=== PATIENT | female | born 1945 | race Caucasian/White ===

== ENCOUNTER 2016-09-06 02:48 | Observation (INO) | payer MEDICARE ==
[2016-09-06] VITALS (15 sets, daily range): BP systolic 138–190; BP diastolic 68–86; PULSE 56–71; RESP 18–20; TEMP 96.9–98; O2SAT 95–98
[~2016-09-06] VITALS: Ht 165.1 cm; Wt 108.8 kg
[~2016-09-06 02:48] MED LIST: APRE1TAB3; ASPI1TAB69 PO; METF500T PO; VERA180T35 PO; VITA100052 PO
[2016-09-06] MEDS ORDERED: SODIUM CHLORIDE 0.9% FLUSH 5 ML FLUSH IVF PRN (03:00)
[2016-09-06 03:07] LABS: AUTOMATED NEUTROPHIL # 8.1 TH/MM3 (1.8-7.7); BASOPHIL # 0.3 TH/MM3 (0-0.2); BASOPHIL % 2.7 % (0.0-2.0); EOSINOPHIL # 0.4 TH/MM3 (0-0.4); HEMATOCRIT 39.2 % (35.0-46.0); LYMPH % 23.3 % (9.0-44.0); LYMPHOCYTE # 2.8 TH/MM3 (1.0-4.8); MEAN CORPUSCULAR HEMOGLOBIN 28.1 PG (27.0-34.0); MEAN CORPUSCULAR HGB CONC 32.7 % (32.0-36.0); MONO % 4.4 % (0.0-8.0); NEUT % 66.6 % (16.0-70.0); PLATELET COUNT 399 TH/MM3 (150-450); RED BLOOD COUNT 4.55 MIL/MM3 (4.00-5.30); RED CELL DISTRIBUTION WIDTH 13.4 % (11.6-17.2); WHITE BLOOD COUNT 12.1 TH/MM3 (4.0-11.0)
[2016-09-06 03:10] LABS: HEMO FLAGS DIFF FINAL
--- NOTE | 2016-09-06 03:11 | PD ---
HPI Chief Complaint: Neuro Symptoms/ Deficits Time Seen by Provider: 03:13 Travel History International Travel<30 days: No Contact w/Intl Traveler<30days: No Traveled to known affect area: No History of Present Illness HPI The patient is a 71-year-old female who was gurgling in bed next to her janae. This woke her up and her nudged her but she did not respond. He then got up and noted that she was confused. The patient also with the bed which she never does. The patient after about 15 minutes was able to talk to her and became more coherent. She has never had any focal neurologic change. She comes in feeling generally weak but is alert and oriented and has no focal weakness. She denies any headache. Her blood sugars have been running between 90 and 110 at home. She has some metformin controlled diabetic. She denies any trauma. She denies any chest pain, cough, fever or shortness of breath. PFSH Past Medical History Arthritis: Yes Blood Disorders: No Anxiety: Yes Heart Rhythm Problems: Yes (MVP) Cancer: No Cardiovascular Problems: Yes (MVP) High Cholesterol: Yes Chest Pain: Yes Endocrine: No GERD: Yes Glaucoma: No Genitourinary: Yes (UTI'S) Hypertension: No Immune Disorder: No Integumentary: Yes (PSORIASIS) Migraines: Yes Past Surgical History AICD: No Appendectomy: Yes (TAKEN OUT WITH HYSTERECTOMY) Arteriovenous Shunt: No Gynecologic Surgery: Yes (HYSTERECTOMY) Hysterectomy: Yes Insulin Pump: No Pacemaker: No Social History Alcohol Use: No Tobacco Use: No Substance Use: No Allergies-Medications (Allergen,Severity, Reaction): Coded Allergies: No Known Allergies (Verified , 09/06/16) Reported Meds & Prescriptions Reported Meds & Active Scripts Active Reported Otezla (Apremilast) 30 Mg Tab Aspirin 81 Mg Tabdr 81 Mg PO DAILY Vitamin D High Potency (Cholecalciferol) 1,000 Unit Cap 1,000 Units PO DAILY Metformin (Metformin HCl) 500 Mg Tab 500 Mg PO DAILY With a meal Verapamil SR (Verapamil HCl) 180 Mg Tab 180 Mg PO DAILY Review of Systems Except as stated in HPI: all other systems reviewed are Neg Physical Exam Narrative GENERAL: The patient is alert and oriented 3. She appears in no acute distress. SKIN: Warm and dry. HEAD: Atraumatic. Normocephalic. Neither raccoon eyes or kohli sign is present. EYES: Pupils equal and round. No scleral icterus. No injection or drainage. ENT: No nasal bleeding or discharge. Mucous membranes pink and moist. There appear to be bite costello on both sides of the patient's tongue. These all appear recent. NECK: Trachea midline. No JVD. CARDIOVASCULAR: Regular rate and rhythm. No murmur appreciated. RESPIRATORY: No accessory muscle use. Clear to auscultation. Breath sounds equal bilaterally. GASTROINTESTINAL: Abdomen soft, non-tender, nondistended. Hepatic and splenic margins not palpable. MUSCULOSKELETAL: No obvious deformities. No clubbing. No cyanosis. No edema. NEUROLOGICAL: Awake and alert. No obvious cranial nerve deficits. Motor grossly within normal limits. Normal speech. PSYCHIATRIC: Appropriate mood and affect; insight and judgment normal. Data Data Last Documented VS Vital Signs Date Time Temp Pulse Resp B/P Pulse Ox O2 Delivery O2 Flow Rate FiO2 09/06/16 04:06 61 18 146/71 96 Room Air 09/06/16 03:07 98.0 Orders Electrocardiogram (09/06/16 02:56) Complete Blood Count With Diff (09/06/16 02:56) Comprehensive Metabolic Panel (09/06/16 02:56) Magnesium (Mg) (09/06/16 02:56) Ckmb (Isoenzyme) Profile (09/06/16 02:56) Troponin I (09/06/16 02:56) Urinalysis - C+S If Indicated (09/06/16 02:56) Ecg Monitoring (09/06/16 02:56) Iv Access Insert/Monitor (09/06/16 02:56) Oximetry (09/06/16 02:56) Sodium Chloride 0.9% Flush (Ns Flush) (09/06/16 03:00) Ct Brain W/O Iv Contrast(Rout) (09/06/16 02:58) Arterial Blood Gas (Abg) (09/06/16 03:14) Chest, Pa & Lat (09/06/16 03:14) CKMB (09/06/16 03:00) CKMB% (09/06/16 03:00) B-Type Natriuretic Peptide (09/06/16 04:17) Labs Laboratory Tests Test 09/06/16 09/06/16 03:00 03:23 White Blood Count 12.1 TH/MM3 Red Blood Count 4.55 MIL/MM3 Hemoglobin 12.8 GM/DL Hematocrit 39.2 % Mean Corpuscular Volume 86.0 FL Mean Corpuscular Hemoglobin 28.1 PG Mean Corpuscular Hemoglobin 32.7 % Concent Red Cell Distribution Width 13.4 % Platelet Count 399 TH/MM3 Mean Platelet Volume 8.3 FL Neutrophils (%) (Auto) 66.6 % Lymphocytes (%) (Auto) 23.3 % Monocytes (%) (Auto) 4.4 % Eosinophils (%) (Auto) 3.0 % Basophils (%) (Auto) 2.7 % Neutrophils # (Auto) 8.1 TH/MM3 Lymphocytes # (Auto) 2.8 TH/MM3 Monocytes # (Auto) 0.5 TH/MM3 Eosinophils # (Auto) 0.4 TH/MM3 Basophils # (Auto) 0.3 TH/MM3 CBC Comment DIFF FINAL Differential Comment Sodium Level 137 MEQ/L Potassium Level 3.9 MEQ/L Chloride Level 104 MEQ/L Carbon Dioxide Level 19.8 MEQ/L Anion Gap 13 MEQ/L Blood Urea Nitrogen 16 MG/DL Creatinine 1.10 MG/DL Estimat Glomerular Filtration 49 ML/MIN Rate Random Glucose 142 MG/DL Calcium Level 8.4 MG/DL Magnesium Level 2.0 MG/DL Total Bilirubin 0.2 MG/DL Aspartate Amino Transf 20 U/L (AST/SGOT) Alanine Aminotransferase 27 U/L (ALT/SGPT) Alkaline Phosphatase 103 U/L Total Creatine Kinase 119 U/L Creatine Kinase MB 1.5 NG/ML Troponin I LESS THAN 0.02 NG/ML Total Protein 7.1 GM/DL Albumin 3.5 GM/DL Blood Gas Puncture Site RT BRACHIAL Blood Gas Patient Temperature 98.6 Blood Gas HCO3 22 mmol/L Blood Gas Base Excess -2.0 mmol/L Blood Gas Oxygen Saturation 96 % Arterial Blood pH 7.37 Arterial Blood Partial 40 mmHG Pressure CO2 Arterial Blood Partial 93 mmHG Pressure O2 Arterial Blood Oxygen Content 16.6 Vol % Arterial Blood 1.3 % Carboxyhemoglobin Arterial Blood Methemoglobin 1.4 % Blood Gas Hemoglobin 12.2 G/DL Oxygen Delivery Device ROOM AIR Blood Gas Inspired Oxygen 21 % MDM Medical Decision Making Medical Screen Exam Complete: Yes Emergency Medical Condition: Yes Medical Record Reviewed: Yes Differential Diagnosis New-onset seizure, electrolyte disorder, hypo-/hyperglycemia, brain mass, renal insufficiency, sepsis, anemia, cardiac dysrhythmia, hypoxemia Narrative Course The patient appears to have a seizure. The gurgling, apparent postictal state, loss of bladder control, tongue bite costello all suggest a seizure. The cause of the seizure is unknown. It is possible that it could have been hypoxemia, the patient did have an episode where her oxygenation went to 93%. It is possible that her oxygenation was lower when she was asleep. The blood gases were drawn while she is awake. Hypoglycemia is apparently not the case, her blood sugar here is in the 140s. Moreover, she did not have any problem with her blood sugar at home recently. Also, the x-ray suggest congestive heart failure with mild cardiomegaly and increased pulmonary vascularity. This may be the reason she may have had some transient hypoxemia. The CT scan does not suggest any cause for seizures. If the patient does have congestive heart failure, this is a new onset condition for her. Physician Communication Physician Communication I discussed the patient with Dr. Delgado, the patient will be admitted to her for 23 hour observation. Diagnosis Primary Impression: Seizure Additional Impression: CHF (congestive heart failure) Admitting Information Admitting Physician Requests: Observation Roque Tejada MD Sep 06, 2016 03:11
[2016-09-06 03:16] LABS: CHLORIDE 104 MEQ/L (98-107); POTASSIUM 3.9 MEQ/L (3.5-5.1); SODIUM (NA) 137 MEQ/L (136-145)
[2016-09-06 03:21] LABS: ANION GAP 13 MEQ/L (5-15); BICARBONATE 19.8 MEQ/L (21.0-32.0); BLOOD UREA NITROGEN 16 MG/DL (7-18)
[2016-09-06 03:23] LABS: ALT (GPT) 27 U/L (10-53); AST (GOT) 20 U/L (15-37)
[2016-09-06 03:24] LABS: GLOMERULAR FILTRATION RATE 49 ML/MIN (>89)
[2016-09-06 03:25] LABS: TOTAL BILIRUBIN ADULT 0.2 MG/DL (0.2-1.0)
[2016-09-06 03:26] LABS: ALKALINE PHOSPHATASE 103 U/L (45-117); CREATINE KINASE 119 U/L (26-192)
[2016-09-06 03:32] LABS: BLOOD GAS CARBOXYHEMOGLOBIN 1.3 % (0-4); BLOOD GAS HCO3 22 mmol/L (22-26); BLOOD GAS METHEMOGLOBIN 1.4 % (0-2); BLOOD GAS O2 HGB SATURATION 96 % (90-100); BLOOD GAS OXYGEN CONTENT 16.6 Vol % (12.0-20.0); BLOOD GAS PCO2 40 mmHG (38-42); BLOOD GAS PO2 93 mmHG (61-120); BLOOD GAS TOTAL HGB 12.2 G/DL (12.0-16.0); CRITICAL VALUE NO; DRAW SITE RT BRACHIAL; FIO2 21 %; NUMBER OF ARTERIAL PUNCTURES 2; OXYGEN DEVICE ROOM AIR; STAT YES; TEMP CORR TO 98.6; ULNAR PULSE Y
[2016-09-06 03:52] LABS: CKMB 1.5 NG/ML (0.5-3.6)
--- NOTE | 2016-09-06 04:03 | RADHPO ---
EXAM DATE/TIME: 09/06/2016 03:33 [facility] COMPARISON: No previous studies available for comparison. INDICATIONS : Weakness. RADIATION DOSE: 61.93 CTDIvol (mGy) MEDICAL HISTORY : Cardiovascular disease. Diabetes mellitus type 2. SURGICAL HISTORY : Hysterectomy. ENCOUNTER: Initial ACUITY: 1 day PAIN SCALE: 0/10 LOCATION: cranial TECHNIQUE: Multiple contiguous axial images were obtained of the head. Using automated exposure control and adj ustment of the mA and/or kV according to patient size, radiation dose was kept as low as reasonably a chievable to obtain optimal diagnostic quality images. FINDINGS: CEREBRUM: Areas of low-attenuation are seen throughout the white matter. The ventricles are normal for age. No evidence of midline shift, mass lesion, hemorrhage or acute infarction. No extra-axial fluid collec tions are seen. POSTERIOR FOSSA: The cerebellum and brainstem are intact. The 4th ventricle is midline. The cerebellopontine angle i s unremarkable. EXTRACRANIAL: The visualized portion of the orbits is intact. SKULL: The calvaria is intact. No evidence of skull fracture. CONCLUSION: Nonspecific white matter changes. No acute intracranial abnormality. Bossman Morrison MD on September 06, 2016 at 3:59 Board Certified Radiologist. This report was verified electronically.
--- NOTE | 2016-09-06 04:13 | RADHPO ---
EXAM DATE/TIME: 09/06/2016 03:32 [facility] COMPARISON: No previous studies available for comparison. INDICATIONS : Chest tightness MEDICAL HISTORY : Varicocele. Seizures SURGICAL HISTORY : None. ENCOUNTER: Initial ACUITY: 1 day PAIN SCORE: Non-responsive. LOCATION: Bilateral chest FINDINGS: PA and lateral views of the chest demonstrate the lungs to be symmetrically aerated without evidence of mass, infiltrate or effusion. Mild cardiomegaly and increased pulmonary vascularity. The cardiomed iastinal contours are unremarkable. Osseous structures are intact. CONCLUSION: Mild cardiomegaly and increased pulmonary vascularity. Bossman Morrison MD on September 06, 2016 at 4:11 Board Certified Radiologist. This report was verified electronically.
[2016-09-06] MEDS ORDERED: DEXTROSE 50% IN WATER 50 ML VIAL(D50) IV PUSH PRN (04:30)
[2016-09-06] MEDS ORDERED: SODIUM CHLORIDE 0.9% FLUSH 5 ML FLUSH FLUSH PRN (04:30)
[2016-09-06] MEDS ORDERED: GLUCAGON 1 MG/ML VIAL OTHER PRN (04:30)
[2016-09-06] MEDS ORDERED: NALOXONE HCL 0.4 MG/ML AMP IV PRN (04:30)
[2016-09-06 06:14] LABS: BLOOD, URINE TRACE (NEG); GLUCOSE,URINE NEG (NEG); KETONE, URINE NEG (NEG); NITRITE,URINE NEG (NEG)
[2016-09-06 06:25] LABS: URINE COLOR YELLOW (YELLW/STRAW)
[2016-09-06 06:26] LABS: BACTERIA, URINE FEW /hpf; MUCUS URINE OCC /lpf (OCC)
[2016-09-06 06:27] LABS: COMMENT (UR) CULT NOT INDICATED; CULTURE IF INDICATED CULT NOT INDICATED; RBC, URINE 0-3 /hpf (0-3)
[2016-09-06] MEDS: VERAPAMIL HCL 180 MG SUSTAINED RELEASE TAB PO SCH (09:04)
[2016-09-06] MEDS: ASPIRIN EC 81 MG TABEC PO SCH (09:05)
[2016-09-06] MEDS: SODIUM CHLORIDE 0.9% FLUSH 5 ML FLUSH FLUSH SCH ×2 (09:05→22:37)
[2016-09-06] MEDS ORDERED: IBUPROFEN 600 MG TAB PO ONE (10:45)
--- NOTE | 2016-09-06 11:58 | HHI.HP ---
cc: Beba Perry MD [facility] Service [place] [facility] Primary Care Physician Beba Perry MD Admission Diagnosis seizure, new onset CHF Diagnoses: Chief Complaint: Seizure Travel History International Travel<30 Days: No Contact w/Intl Traveler <30 Da: No Traveled to Known Affected Are: No History of Present Illness This patient is a 71-year-old female who is evaluated in the hospital due to new onset seizures. Patient had a seizure overnight which her witnessed. Per his report he was laying beside her and hurt her grunting. He was unable to awaken her. Patient says she bit her tongue and urinated on herself. She's never had any seizures before. She does admit increased headaches over the last week or so. She does have psoriasis for which she takes otezla. Patient has a family history of seizures and again no personal history of seizures. She did describe a postictal phase per her 's report. For these reasons the patient is recommended for further observation in the hospital Review of Systems Constitutional: DENIES: Diaphoretic episodes, Fatigue, Fever, Weight gain, Weight loss, Chills, Dizziness, Change in appetite, Night Sweats Endocrine: DENIES: Abnorml menstrual pattern, Heat/cold intolerance, Polydipsia , Polyuria, Polyphagia Eyes: DENIES: Blurred vision, Diplopia, Eye inflammation, Eye pain, Vision loss , Photosensitivity, Double Vision Ears, nose, mouth, throat: DENIES: Tinnitus, Hearing loss, Vertigo, Nasal discharge, Oral lesions, Throat pain, Hoarseness, Ear Pain, Running Nose, Epistaxis, Sinus Pain, Toothache, Odynophagia Respiratory: DENIES: Apneas, Cough, Snoring, Wheezing, Hemoptysis, Sputum production, Shortness of breath Cardiovascular: DENIES: Chest pain, Palpitations, Syncope, Dyspnea on Exertion , PND, Lower Extremity Edema, Orthopnea, Claudication Gastrointestinal: DENIES: Abdominal pain, Black stools, Bloody stools, Constipation, Diarrhea, Nausea, Vomiting, Difficulty Swallowing, Anorexia Genitourinary: DENIES: Abnormal vaginal bleeding, Dysmenorrhea, Dyspareunia, Sexual dysfunction, Urinary frequency, Urinary incontinence, Urgency, Hematuria , Dysuria, Nocturia, Vaginal discharge Musculoskeletal: DENIES: Joint pain, Muscle aches, Stiffness, Joint Swelling, Back pain, Neck pain Integumentary: DENIES: Abnormal pigmentation, Pruritus, Rash, Nail changes, Breast masses, Breast skin changes, Nipple discharge Hematologic/lymphatic: DENIES: Bruising, Lymphadenopathy Immunologic/allergic: DENIES: Eczema, Urticaria Neurologic: COMPLAINS OF: Headache, Seizures, DENIES: Abnormal gait, Localized weakness, Paresthesias, Speech Problems, Tremor, Poor Balance Psychiatric: DENIES: Anxiety, Confusion, Mood changes, Depression, Hallucinations, Agitation, Suicidal Ideation, Homicidal Ideation, Delusions Past Family Social History Past Medical History History of diabetes mellitus type 2 Mitral valve prolapse Migraine type headaches Diverticular disease Past Surgical History Partial abdominal hysterectomy Tonsils Reported Medications Reviewed in the medical record nothing new Allergies: Coded Allergies: No Known Allergies (Verified , 09/06/16) Active Ordered Medications Reviewed in the medical record Family History No family history of seizures or diabetes Father had heart issues with renal failure Social History No current tobacco or alcohol dependency, lives with her Physical Exam Vital Signs Vital Signs Date Time Temp Pulse Resp B/P Pulse Ox O2 Delivery O2 Flow Rate FiO2 09/06/16 10:13 64 09/06/16 08:00 98.0 68 18 190/86 98 09/06/16 07:01 65 09/06/16 06:31 64 18 96 09/06/16 06:22 97.7 64 20 163/80 96 09/06/16 06:02 68 18 164/76 96 Room Air 09/06/16 05:00 59 18 138/74 96 Room Air 09/06/16 04:06 61 18 146/71 96 Room Air 09/06/16 04:00 96 21 09/06/16 03:10 71 18 96 Room Air 09/06/16 03:10 71 18 96 Room Air 09/06/16 03:08 67 20 145/68 09/06/16 03:07 98.0 71 18 168/80 96 Physical Exam GENERAL: This is a well-nourished, well-developed patient, in no apparent distress. SKIN: No rashes, ecchymoses or lesions. Cool and dry. HEAD: Atraumatic. Normocephalic. No temporal or scalp tenderness. EYES: Pupils equal round and reactive. Extraocular motions intact. No scleral icterus. No injection or drainage. ENT: Nose without bleeding, purulent drainage or septal hematoma. Throat without erythema, tonsillar hypertrophy or exudate. Uvula midline. Airway patent. NECK: Trachea midline. No JVD or lymphadenopathy. Supple, nontender, no meningeal signs. CARDIOVASCULAR: Regular rate and rhythm without murmurs, gallops, or rubs. RESPIRATORY: Clear to auscultation. Breath sounds equal bilaterally. No wheezes , rales, or rhonchi. GASTROINTESTINAL: Abdomen soft, non-tender, nondistended. No hepato-splenomegaly , or palpable masses. No guarding. MUSCULOSKELETAL: Extremities without clubbing, cyanosis, or edema. No joint tenderness, effusion, or edema noted. No calf tenderness. Negative Homans sign bilaterally. NEUROLOGICAL: Awake and alert. Cranial nerves II through XII intact. Motor and sensory grossly within normal limits. Five out of 5 muscle strength in all muscle groups. Normal speech. Laboratory Laboratory Tests Test 09/06/16 09/06/16 09/06/16 03:00 03:23 06:00 White Blood Count 12.1 Red Blood Count 4.55 Hemoglobin 12.8 Hematocrit 39.2 Mean Corpuscular Volume 86.0 Mean Corpuscular Hemoglobin 28.1 Mean Corpuscular Hemoglobin 32.7 Concent Red Cell Distribution Width 13.4 Platelet Count 399 Mean Platelet Volume 8.3 Neutrophils (%) (Auto) 66.6 Lymphocytes (%) (Auto) 23.3 Monocytes (%) (Auto) 4.4 Eosinophils (%) (Auto) 3.0 Basophils (%) (Auto) 2.7 Neutrophils # (Auto) 8.1 Lymphocytes # (Auto) 2.8 Monocytes # (Auto) 0.5 Eosinophils # (Auto) 0.4 Basophils # (Auto) 0.3 CBC Comment DIFF FINAL Differential Comment Sodium Level 137 Potassium Level 3.9 Chloride Level 104 Carbon Dioxide Level 19.8 Anion Gap 13 Blood Urea Nitrogen 16 Creatinine 1.10 Estimat Glomerular Filtration 49 Rate Random Glucose 142 Calcium Level 8.4 Magnesium Level 2.0 Total Bilirubin 0.2 Aspartate Amino Transf 20 (AST/SGOT) Alanine Aminotransferase 27 (ALT/SGPT) Alkaline Phosphatase 103 Total Creatine Kinase 119 Creatine Kinase MB 1.5 Troponin I LESS THAN 0.02 B-Type Natriuretic Peptide 52 Total Protein 7.1 Albumin 3.5 Blood Gas Puncture Site RT BRACHIAL Blood Gas Patient Temperature 98.6 Blood Gas HCO3 22 Blood Gas Base Excess -2.0 Blood Gas Oxygen Saturation 96 Arterial Blood pH 7.37 Arterial Blood Partial 40 Pressure CO2 Arterial Blood Partial 93 Pressure O2 Arterial Blood Oxygen Content 16.6 Arterial Blood 1.3 Carboxyhemoglobin Arterial Blood Methemoglobin 1.4 Blood Gas Hemoglobin 12.2 Oxygen Delivery Device ROOM AIR Blood Gas Inspired Oxygen 21 Urine Color YELLOW Urine Turbidity SLIGHT Urine pH 6.0 Urine Specific [place] 1.011 Urine Protein NEG Urine Glucose (UA) NEG Urine Ketones NEG Urine Occult Blood TRACE Urine Nitrite NEG Urine Bilirubin NEG Urine Leukocyte Esterase SMALL Urine RBC 0-3 Urine WBC 3-5 Urine Squamous Epithelial 6-8 Cells Urine Bacteria FEW Urine Mucus OCC Microscopic Urinalysis Comment CULT NOT INDICATED Result Diagram: 09/06/1629909/06/16299 Assessment and Plan Problem List: (1) Seizure ICD Code: R56.9 Status: Acute Plan: New Onset with unclear etiology. Patient will continue with observation and workup here. EEG pending, will follow-up MRI (CT the brain unremarkable) Patient with a history of migraines and has been on has been taking otezla which may have been involved in the acute issue Neuro consult pending Neuro checks (2) Psoriasis ICD Code: L40.9 Status: Acute Plan: on otezla per outpatient rheumatology We will hold this medication due to possible seizure side effect (3) DM2 (diabetes mellitus, type 2) ICD Code: E11.9 Status: Acute Plan: Metformin held Follow sliding scale Diabetic diet Assessment and Plan Plan of care to be determined by Hospital course Code Status Full code Zenaida Mclaughlin MD Sep 06, 2016 11:58
[2016-09-06] MEDS ORDERED: LORazepam 2 MG/ML VIAL IV PUSH PRN (12:00)
--- NOTE | 2016-09-06 14:07 | EKG ---
Date Performed: 09/06/2016 Time Performed: 03:03:00 PTAGE: 71 years EKG: Sinus rhythm . Since previous tracing, no significant change noted Normal ECG PREVIOUS TRACING : 07/29/2013 16.02 DOCTOR: Louis Paul Interpretating Date/Time 09/06/2016 14:00:21
--- NOTE | 2016-09-06 16:11 | MG ---
cc: PAMELA BATISTA M.D. Lab No: [id number] Date: 09/06/2016 Age: 71 sex: F Race: Cc: DATE OF : 1945, 71 years old. ELECTROENCEPHALOGRAM NUMBER: [id number] REFERRING PHYSICIAN: Dr. Marshall is the referring physician. ROOM [id number]. STUDY: Awake, drowsy asleep study with photic stimulation. CT nonspecific white matter changes. a 71-year-old woman with gargling in her sleep unarousable confused, weak history of dizziness, migraines, dyspnea, diabetes, hyperlipidemia. MEDICATIONS 1. Aspirin 2. Metformin 3. Verapamil DESCRIPTION OF RECORD: Somewhat low amplitude EEG overall five x 5 Hz background notes to be snoring at one point, mild artifact noted. EKG shows artifact as well. Difficult to interpret x 1 lead. Continues to snore at times there is some delta waves between delta theta frequency. Photic stimulation is a mild driving response seen. No epileptic activity. IMPRESSION 1. Abnormal EEG due to mild moderate slowing may be due to somnolence versus encephalopathic process. 2. No epileptic activity. 3. Clinical correlation. MD ROB Molina/ethan /3:37 PM /4:07 PM
[2016-09-07] VITALS: BP 166/74; PULSE 51; RESP 18; TEMP 97.3; O2SAT 95
[2016-09-07 04:00] VITALS: BP_SYST 117; BP_SYST 161; BP_DIAS 73; BP_DIAS 77; PULSE 60; PULSE 87; RESP 18; TEMP 97.3; TEMP 97.4; O2SAT 94
[2016-09-07 06:45] LABS: BICARBONATE 28.3 MEQ/L (21.0-32.0)
[2016-09-07 06:47] LABS: AUTOMATED NEUTROPHIL # 5.5 TH/MM3 (1.8-7.7); BASOPHIL # 0.3 TH/MM3 (0-0.2); BASOPHIL % 3.4 % (0.0-2.0); EOSINOPHIL # 0.3 TH/MM3 (0-0.4); EOSINOPHIL % 3.4 % (0.0-4.0); LYMPH % 29.4 % (9.0-44.0); LYMPHOCYTE # 2.8 TH/MM3 (1.0-4.8); MEAN CELL VOLUME 86.1 FL (80.0-100.0); MEAN CORPUSCULAR HEMOGLOBIN 28.3 PG (27.0-34.0); MEAN CORPUSCULAR HGB CONC 32.8 % (32.0-36.0); MONO % 8.1 % (0.0-8.0); NEUT % 55.7 % (16.0-70.0); PLATELET COUNT 381 TH/MM3 (150-450); RED BLOOD COUNT 4.41 MIL/MM3 (4.00-5.30); RED CELL DISTRIBUTION WIDTH 13.4 % (11.6-17.2); WHITE BLOOD COUNT 9.7 TH/MM3 (4.0-11.0)
[2016-09-07 06:48] LABS: HEMO FLAGS DIFF FINAL
[2016-09-07 08:00] VITALS: BP 161/78; PULSE 61; PULSE 78; RESP 21; TEMP 96.6; O2SAT 97
--- NOTE | 2016-09-07 08:17 | MB ---
cc: LILIANE CHO M.D. DATE OF CONSULTATION: 09/07/2016 HISTORY OF PRESENT ILLNESS This is a 71-year-old woman with a history of new onset seizures. She had a seizure around 1:30 a.m. yesterday, during her sleep. Her awoke with the patient having gurgling movements and apparently having a generalized tonic-clonic seizure. He could not awaken her for 10 minutes or so. She subsequently regained consciousness and she was brought to the hospital. She bit her tongue bilaterally and she also lost bladder control with this seizure. PAST HISTORY No prior history of seizures. No neurologic history except for some headaches lately, perhaps after she started taking Otezla for psoriasis. She has diabetes mellitus type 2. She also takes baby aspirin and Verapamil. She does not smoke and does not drink alcohol. She had no neurologic issues yesterday except for headache which improved with [id number] medication here in the hospital. NEUROLOGICAL EXAMINATION The neurological exam shows normal mentation. Ocular movements and visual diaz full. No facial weakness. Residual evidence of tongue injury bilaterally. She has good strength throughout. Reflexes were absent versus trace responses. Plantar response is flexor. IMAGING DATA The CT brain shows microvascular disease. LABORATORY DATA Chemistry essentially normal today. Creatinine slightly elevated yesterday. Glucose was 142. CBC also benign with white count 12.1 yesterday, and 9.7 today. ASSESSMENT Single seizure during sleep, cause undetermined. This may have been an unprovoked seizure. I have to check to see if the medication for psoriasis that she is taking would cause or expose her to seizure by lowering the seizure threshold. If not, then I will probably start her on anticonvulsants. Her EEG was non-epileptiform and the MRI brain is pending. I will request a carotid ultrasound on her as well. Thank you for asking us to assist in her care. MD KAYE Gonzalez/BT /7:42 AM /8:01 AM
[2016-09-07] MEDS: VERAPAMIL HCL 180 MG SUSTAINED RELEASE TAB PO SCH (09:09)
[2016-09-07] MEDS: ASPIRIN EC 81 MG TABEC PO SCH (09:09)
[2016-09-07] MEDS: SODIUM CHLORIDE 0.9% FLUSH 5 ML FLUSH FLUSH SCH (09:10)
--- NOTE | 2016-09-07 09:17 | RADHPO ---
EXAM DATE/TIME: 09/07/2016 08:22 [facility] COMPARISON: No previous studies available for comparison. INDICATIONS : Transient ischemic attack. MEDICAL HISTORY : Hypercholesterolemia. Gastroesophageal reflux disease. Seizure. Migraine. Diverticulitis. Arthritis . Diabetes. SURGICAL HISTORY : Tonsillectomy. Hysterectomy. Appendectomy. ENCOUNTER: Initial ACUITY: 1 day PAIN SCORE: 0/10 LOCATION: Bilateral neck PEAK SYSTOLIC VELOCITIES (cm/sec): ICA/CCA RATIO: Right: 2.6 Left: 1.2 ICA: Right: 168 Left: 108 CCA: Right: 64 Left: 87 ECA: Right: 74 Left: 107 VERTEBRAL: Right: 68 antegrade Left: 68 antegrade Elevated flow velocities and ICA/CCA ratios have been found to correlate with increased degrees of vessel stenosis, calculated as percentage of diameter relative to a normal segment of distal ICA/CCA FINDINGS: RIGHT CAROTID: Velocities within the distal right internal carotid artery are consistent with a 50-69% stenosis. LEFT CAROTID: No significant stenosis is visualized. The waveforms are within normal limits. VERTEBRAL ARTERIES: Antegrade flow is seen in both vertebral arteries. MISCELLANEOUS: None. CONCLUSION: 1 the. Velocities within the distal right internal carotid artery are consistent with a 50-69% stenos is. 2. No significant stenosis seen within the left internal carotid artery.. Betty Yancey MD on September 07, 2016 at 9:11 Board Certified Radiologist. This report was verified electronically.
[2016-09-07 12:00] VITALS: BP 185/84; PULSE 63; RESP 20; TEMP 97.1; O2SAT 94
--- NOTE | 2016-09-07 14:13 | RADHPO ---
EXAM DATE/TIME: 09/07/2016 13:20 [facility] COMPARISON: No previous studies available for comparison. INDICATIONS : Seizures. MEDICAL HISTORY : None. SURGICAL HISTORY : Tonsillectomy. Hysterectomy. ENCOUNTER: Subsequent ACUITY: 2 day PAIN SCORE: 0/10 LOCATION: head. TECHNIQUE: Multiplanar, multisequence MRI of the brain was performed without contrast. FINDINGS: CEREBRUM: The ventricles are normal for age. No evidence of midline shift, mass lesion, hemorrhage or acute in farction. No extraaxial fluid collections are seen. The pituitary gland and suprasellar cistern are normal in configuration. WHITE MATTER: Scattered foci of increased T2 signal identified in the white matter, periventricular, zaidi radiata and centrum semiovale. POSTERIOR FOSSA: The cerebellum and brainstem are intact. The 4th ventricle is midline. The cerebellopontine angle is unremarkable. The cerebellar tonsils are normal in position. DIFFUSION IMAGING: No focal areas of restricted diffusion are seen. No evidence of acute infarction. EXTRACRANIAL: The visualized portions of the orbits and paranasal sinuses are unremarkable. CONCLUSION: No evidence of acute abnormality. Scattered foci of increased signal within the white matter consiste nt with chronic small vessel ischemic change.. Betty Yancey MD on September 07, 2016 at 14:10 Board Certified Radiologist. This report was verified electronically.
[2016-09-07] MEDS ORDERED: LEVE500 PO (15:30)
--- NOTE | 2016-09-07 15:31 | HHI.DCPOC ---
Discharge Care Plan Diagnosis: (1) Seizure Goals to Promote Your Health * To prevent worsening of your condition and complications * To maintain your health at the optimal level Directions to Meet Your Goals Take your medications as prescribed Follow your dietary instruction Follow activity as directed Keep your appointments as scheduled Take your immunizations and boosters as scheduled If your symptoms worsen call your PCP, if no PCP go to Urgent Care Center or Emergency Room Smoking is Dangerous to Your Health. Avoid second hand smoke Call the 24-hour hour crisis hotline for domestic abuse at Zenaida Mclaughlin MD Sep 07, 2016 15:30
--- NOTE | 2016-09-07 15:33 | HHI.DS ---
Discharge Summary Admission Date Sep 06, 2016 at 04:38 Discharge Date: Sep 07, 2016 Admitting Diagnosis seizure, new onset CHF (1) Seizure ICD Code: R56.9 (2) Psoriasis ICD Code: L40.9 (3) DM2 (diabetes mellitus, type 2) ICD Code: E11.9 Procedures None Brief History - From Admission This patient is a 71-year-old female who is evaluated in the hospital due to new onset seizures. Patient had a seizure overnight which her witnessed. Per his report he was laying beside her and hurt her grunting. He was unable to awaken her. Patient says she bit her tongue and urinated on herself. She's never had any seizures before. She does admit increased headaches over the last week or so. She does have psoriasis for which she takes otezla. Patient has a family history of seizures and again no personal history of seizures. She did describe a postictal phase per her 's report. For these reasons the patient is recommended for further observation in the hospital CBC/BMP: 09/07/16 0600 09/07/16 0600 Significant Findings Laboratory Tests Test 09/06/16 09/06/16 09/06/16 09/07/16 03:00 03:23 06:00 06:00 White Blood Count 12.1 TH/MM3 (4.0-11.0) Basophils (%) (Auto) 2.7 % (0.0-2.0) 3.4 % (0.0-2.0) Neutrophils # (Auto) 8.1 TH/MM3 (1.8-7.7) Basophils # (Auto) 0.3 TH/MM3 0.3 TH/MM3 (0-0.2) (0-0.2) Carbon Dioxide Level 19.8 MEQ/L (21.0-32.0) Creatinine 1.10 MG/DL (0.50-1.00) Estimat Glomerular Filtration 49 ML/MIN (>89) 60 ML/MIN (>89) Rate Random Glucose 142 MG/DL (74-106) Calcium Level 8.4 MG/DL (8.5-10.1) Troponin I LESS THAN 0.02 NG/ML (0.02-0.05) Arterial Blood pH 7.37 (7.380-7.420) Urine Occult Blood TRACE (NEG) Urine Leukocyte Esterase SMALL (NEG) Urine Squamous Epithelial 6-8 /hpf (0-5) Cells Urine Bacteria FEW /hpf (NONE) Monocytes (%) (Auto) 8.1 % (0.0-8.0) Imaging Last Impressions Carotid Artery Ultrasound 09/07/16 0000 Signed Impressions: Service Date/Time: Wednesday, September 07, 2016 08:22 - CONCLUSION: 1 the. Velocities within the distal right internal carotid artery are consistent with a 50-69%% stenosis. 2. No significant stenosis seen within the left internal carotid artery.. Betty Yancey MD Brain MRI 09/07/16 0000 Signed Impressions: Service Date/Time: Wednesday, September 07, 2016 13:20 - CONCLUSION: No evidence of acute abnormality. Scattered foci of increased signal within the white matter consistent with chronic small vessel ischemic change.. Betty Yancey MD Chest X-Ray 09/06/16 0314 Signed Impressions: Service Date/Time: Tuesday, September 06, 2016 03:32 - CONCLUSION: Mild cardiomegaly and increased pulmonary vascularity. Bossman Morrison MD Head CT 09/06/16 0258 Signed Impressions: Service Date/Time: Tuesday, September 06, 2016 03:33 - CONCLUSION: Nonspecific white matter changes. No acute intracranial abnormality. Bossman Morrison MD PE at Discharge GENERAL: This is a well-nourished, well-developed patient, in no apparent distress. CARDIOVASCULAR: Regular rate and rhythm without murmurs, gallops, or rubs. RESPIRATORY: Clear to auscultation. Breath sounds equal bilaterally. No wheezes , rales, or rhonchi. GASTROINTESTINAL: Abdomen soft, non-tender, nondistended. Normal active bowel sounds MUSCULOSKELETAL: Extremities without clubbing, cyanosis, or edema. NEURO: Alert & Oriented x4 to person, place, time, situation. Moves all ext x4 Pt update on day of discharge Patient seen today in follow-up for seizure and for discharge planning. MRI and carotid ultrasound results discussed with patient. No further seizure activity. Neurological consultation appreciated Hospital Course This patient is a 8-year-old female apparently had a seizure. She was seen by the nephrology team and did have an MRI, EEG as well as carotid ultrasounds. These results available medical record. Patient was recommended to discontinue driving until follow-up with neurology and discontinue otezla which she had been taking for psoriasis. Patient expressed understanding and was discharged home. Pt Condition on Discharge: Good Discharge Disposition: Discharge Home Discharge Time: > 30 minutes Discharge Instructions DIET: Follow Instructions for: As Tolerated, No Restrictions Fluid Restrictions: 1 Activities you can perform: See Additionl Instruction Other Activity Instructions: no driving Follow up Referrals: Neurology - 2 Weeks with Neville Martel MD New Medications: Levetiracetam (Keppra) 500 Mg Tab 500 MG PO DAILY Control Seizures #60 Ref 0 TAB Continued Medications: Aspirin (Aspirin) 81 Mg Tabdr 81 MG PO DAILY TAB Cholecalciferol (Vitamin D High Potency) 1,000 Unit Cap 1000 UNITS PO DAILY #1 BOTTLE Metformin (Metformin) 500 Mg Tab 500 MG PO DAILY With a meal Blood Sugar Management #30 Ref 0 TAB Verapamil SR (Verapamil SR) 180 Mg Tab 180 MG PO DAILY #30 Ref 0 TAB Discontinued Medications: Apremilast (Otezla) 30 Mg Tab Zenaida Mclaughlin MD Sep 07, 2016 15:33
== END 2016-09-07 16:20 | disposition home or self-care (01) ==
LOC: PHED 02:48 → PHEDA 04:38 → PH3B 06:24
PROVIDERS: ADMIT Hospitalist; ATTEND Hospitalist
DX: R56.9 Unspecified convulsions (principal); I50.9 Heart failure, unspecified; L40.9 Psoriasis, unspecified; E11.9 Type 2 diabetes mellitus without complications; I65.21 Occlusion and stenosis of right carotid artery; I34.1 Nonrheumatic mitral (valve) prolapse; G43.909 Migraine, unspecified, not intractable, without status migrainosus; K21.9 Gastro-esophageal reflux disease without esophagitis; E78.00 Pure hypercholesterolemia, unspecified; M19.90 Unspecified osteoarthritis, unspecified site; Z82.0 Family history of epilepsy and other diseases of the nervous system; Z79.84 Long term (current) use of oral hypoglycemic drugs
CPT/HCPCS: 36600; 70450; 70551; 71020; 80048; 80053; 81001; 82550; 82552; 82805; 82948; 83735; 83880; 84484; 85025; 93005; 93880; 95819; 97162; 97530; 99285; G0378; G8987; G8988

== ENCOUNTER 2017-11-03 15:16 | Emergency (ER) | payer MEDICARE ==
[~2017-11-03] VITALS: Ht 170.2 cm; Wt 100.0 kg
[~2017-11-03 15:16] MED LIST changes: -APRE1TAB3; +LEVE500 PO
[2017-11-03 15:23] VITALS: BP 142/66; PULSE 63; RESP 18; TEMP 98.8; O2SAT 97
--- NOTE | 2017-11-03 16:03 | RADRPT ---
EXAM DATE/TIME: 11/03/2017 15:52 [facility] COMPARISON: CHEST PA & LAT, September 06, 2016, 3:32. INDICATIONS : back pain that radiates around the right side of her chest. MEDICAL HISTORY : mitral valve prolapse SURGICAL HISTORY : None. ENCOUNTER: Initial ACUITY: 3 weeks PAIN SCORE: 6/10 LOCATION: Bilateral chest FINDINGS: PA and lateral views of the chest demonstrate the lungs to be symmetrically aerated without evidence of mass, infiltrate or effusion. The cardiomediastinal contours demonstrate mild cardiomegaly. Osse ous structures are intact. CONCLUSION: 1. There is mild cardiomegaly. The lungs are clear. Andi Penn MD on November 03, 2017 at 15:59 Board Certified Radiologist. This report was verified electronically.
[2017-11-03 16:30] LABS: BICARBONATE 27.6 MEQ/L (21.0-32.0); BLOOD UREA NITROGEN 14 MG/DL (7-18); CALCIUM 8.8 MG/DL (8.5-10.1); CHLORIDE 107 MEQ/L (98-107); CREATININE 0.89 MG/DL (0.50-1.00); GLOMERULAR FILTRATION RATE 63 ML/MIN (>89); GLUCOSE,RANDOM 82 MG/DL (74-106); SODIUM (NA) 139 MEQ/L (136-145)
[2017-11-03 16:33] LABS: TROPONIN I LESS THAN 0.02 NG/ML (0.02-0.05)
[2017-11-03] MEDS ORDERED: VERA120T3 PO (19:34)
[2017-11-03] MEDS ORDERED: VERA1TAB10 PO (19:34)
[2017-11-03] MEDS ORDERED: APRE1TAB3 ×2 (19:34)
[2017-11-03] MEDS ORDERED: LEVE500 (19:36)
[2017-11-03] MEDS ORDERED: ATOR10TA15 PO (19:36)
[2017-11-03] MEDS ORDERED: ONDANSETRON HCL 4 MG/2 ML VIAL IV PUSH ONE (19:45)
[2017-11-03] MEDS ORDERED: MORPHINE SULFATE 2 MG/ML INJ IV PUSH ONE (19:45)
--- NOTE | 2017-11-03 19:51 | PD ---
HPI Chief Complaint: Chest Pain Time Seen by Provider: 19:28 Travel History International Travel<30 days: No Contact w/Intl Traveler<30days: No Traveled to known affect area: No History of Present Illness HPI A 72 year old female presents to the emergency department for "back pain". The patient reports that the pain has been going on for 3 weeks and started out of nowhere. The pain is a constant, is a 6/10 on the pain scale, and sometimes wakes her up at night. The pain starts on the mid right back and radiates to the front of the abdomen under the right breast. The patient has been taking Advil which helps a little. She says that when she has a buildup of gas the pain is worse but nothing else makes it worse. She has also had some shortness of breath and nausea with he pain. The patient says that food is not associated with the pain. The patient reports that she lifts heavy boxes often at work. The patient denies dysuria, urinary urgency, hematuria, fevers, diaphoresis, chest pain, lightheadedness, or dizziness. Modifying Factors: None Associated Signs & Symptoms: Back pain with radiation to the right upper quadrant Risk Factors: None PFSH Past Medical History Arthritis: Yes Blood Disorders: No Anxiety: No Depression: No Heart Rhythm Problems: Yes (MVP) Cancer: No Cardiovascular Problems: Yes (MVP) High Cholesterol: Yes Chest Pain: Yes Diabetes: Yes Patient Takes Glucophage: Yes Diminished Hearing: No Endocrine: Yes Gastrointestinal Disorders: Yes (diverticulitis sometimes diarrhea frequent) GERD: Yes Glaucoma: No Genitourinary: Yes (UTI'S) Hypertension: Yes Immune Disorder: No Implanted Vascular Access Dvce: No Musculoskeletal: Yes (right wrist tendonitis ) Neurologic: Yes (possible sizure this visit) Psychiatric: No Reproductive: No Respiratory: No Integumentary: Yes (PSORIASIS) Migraines: Yes Seizures: Yes Tetanus Vaccination: < 5 Years Menopausal: Yes Past Surgical History AICD: No Appendectomy: Yes (TAKEN OUT WITH HYSTERECTOMY) Arteriovenous Shunt: No Gynecologic Surgery: Yes (HYSTERECTOMY) Hysterectomy: Yes Insulin Pump: No Pacemaker: No Other Surgery: Yes Social History Alcohol Use: No Tobacco Use: No Substance Use: No Allergies-Medications (Allergen,Severity, Reaction): Coded Allergies: epinephrine (Verified Allergy, Mild, 11/03/17) No Known Allergies (Verified Allergy, Unknown, 11/03/17) Reported Meds & Prescriptions Reported Meds & Active Scripts Active Reported Atorvastatin (Atorvastatin Calcium) 10 Mg Tab 10 Mg PO HS Keppra (Levetiracetam) 500 Mg Tab 500 Mg BID Otezla (Apremilast) 30 Mg Tab BID Verapamil ER (Verapamil HCl) 180 Mg Tab 180 Mg PO DAILY Vitamin D High Potency (Cholecalciferol) 1,000 Unit Cap 1,000 Units PO DAILY Metformin (Metformin HCl) 500 Mg Tab 500 Mg PO DAILY With a meal Review of Systems Except as stated in HPI: all other systems reviewed are Neg General / Constitutional: No: Fever, Chills Eyes: No: Diploplia HENT: No: Headaches, Lightheadedness Cardiovascular: No: Chest Pain or Discomfort Respiratory: Positive: Shortness of Breath Gastrointestinal: Positive: Nausea, No: Vomiting, Diarrhea Genitourinary: No: Urgency, Hematuria Musculoskeletal: No: Myalgias Skin: No Rash Neurologic: No: Dizziness Physical Exam Narrative GENERAL: Well-developed and well-nourished pleasant elderly white female patient currently in no acute distress. Awake and oriented 3. SKIN: Warm and dry. HEAD: Atraumatic. Normocephalic. EYES: Pupils equal and round. No scleral icterus. No injection or drainage. ENT: No nasal bleeding or discharge. Mucous membranes pink and moist. NECK: Trachea midline. No JVD. Supple. CARDIOVASCULAR: Regular rate and rhythm. RESPIRATORY: No accessory muscle use. Clear to auscultation. Breath sounds equal bilaterally. GASTROINTESTINAL: Mild tenderness in the right upper quadrant, no guarding, no fluid wave, bowel sounds present in all 4 quadrants BACK: Mild right CVA tenderness. No rash. No point tenderness on palpation of the spine. MUSCULOSKELETAL: Extremities without clubbing, cyanosis, or edema. No obvious deformities. Tenderness in the area of T6 on the right side. Mild CVA tenderness on the right side. NEUROLOGICAL: Awake and alert. No obvious cranial nerve deficits. Motor grossly within normal limits. Five out of 5 muscle strength in the arms and legs. Normal speech. PSYCHIATRIC: Appropriate mood and affect; insight and judgment normal. Data Data Last Documented VS Vital Signs Date Time Temp Pulse Resp B/P (MAP) Pulse Ox O2 Delivery O2 Flow Rate FiO2 11/03/17 15:23 98.8 63 18 142/66 (91) 97 Orders Orders Electrocardiogram (11/03/17 ) Complete Blood Count With Diff (11/03/17 15:26) Basic Metabolic Panel (Bmp) (11/03/17 15:26) Ckmb (Isoenzyme) Profile (11/03/17 15:26) Troponin I (11/03/17 15:26) Chest, Pa & Lat (11/03/17 ) CKMB (11/03/17 15:41) CKMB% (11/03/17 15:41) Hepatic Functional Panel (11/03/17 19:28) Ct Abd/Pel W Iv Contrast(Rout) (11/03/17 19:28) Urinalysis - C+S If Indicated (11/03/17 19:31) Morphine Inj (Morphine Inj) (11/03/17 19:45) Ondansetron Inj (Zofran Inj) (11/03/17 19:45) Iohexol 350 Inj (Omnipaque 350 Inj) (11/03/17 19:53) Ibuprofen (Motrin) (11/03/17 21:15) Ed Discharge Order (11/03/17 21:47) Labs Laboratory Tests Test 11/03/17 15:41 11/03/17 19:59 11/03/17 20:20 Blood Urea Nitrogen 14 MG/DL Creatinine 0.89 MG/DL Random Glucose 82 MG/DL Calcium Level 8.8 MG/DL Sodium Level 139 MEQ/L Potassium Level 4.6 MEQ/L Chloride Level 107 MEQ/L Carbon Dioxide Level 27.6 MEQ/L Anion Gap 4 MEQ/L Estimat Glomerular Filtration Rate 63 ML/MIN Total Creatine Kinase 338 U/L Creatine Kinase MB 4.5 NG/ML Creatine Kinase MB % 1.3 % Troponin I LESS THAN 0.02 NG/ML Urine Color LIGHT-YELLOW Urine Turbidity CLEAR Urine pH 6.5 Urine Specific [place] 1.036 Urine Protein NEG mg/dL Urine Glucose (UA) NEG mg/dL Urine Ketones NEG mg/dL Urine Occult Blood NEG Urine Nitrite NEG Urine Bilirubin NEG Urine Urobilinogen LESS THAN 2.0 MG/DL Urine Leukocyte Esterase TRACE Urine WBC 2 /hpf Urine Squamous Epithelial Cells 1 /hpf Urine Mucus FEW /lpf Microscopic Urinalysis Comment CULT NOT INDICATED Total Bilirubin 0.4 MG/DL Direct Bilirubin 0.1 MG/DL Indirect Bilirubin 0.3 MG/DL Aspartate Amino Transf (AST/SGOT) 19 U/L Alanine Aminotransferase (ALT/SGPT) 21 U/L Alkaline Phosphatase 116 U/L Total Protein 7.5 GM/DL Albumin 4.2 GM/DL White Blood Count 10.3 TH/MM3 Red Blood Count 4.52 MIL/MM3 Hemoglobin 13.2 GM/DL Hematocrit 39.4 % Mean Corpuscular Volume 87.2 FL Mean Corpuscular Hemoglobin 29.2 PG Mean Corpuscular Hemoglobin Concent 33.5 % Red Cell Distribution Width 14.2 % Platelet Count 337 TH/MM3 Mean Platelet Volume 9.7 FL Neutrophils (%) (Auto) 64.7 % Lymphocytes (%) (Auto) 22.7 % Monocytes (%) (Auto) 7.5 % Eosinophils (%) (Auto) 3.8 % Basophils (%) (Auto) 1.3 % Neutrophils # (Auto) 6.7 TH/MM3 Lymphocytes # (Auto) 2.3 TH/MM3 Monocytes # (Auto) 0.8 TH/MM3 Eosinophils # (Auto) 0.4 TH/MM3 Basophils # (Auto) 0.1 TH/MM3 CBC Comment AUTO DIFF MDM Medical Decision Making Medical Screen Exam Complete: Yes Emergency Medical Condition: Yes Medical Record Reviewed: Yes Interpretation(s) EKG shows some sinus bradycardia at a rate of 56 bpm with occasional PAC. No signs of acute ST elevations or depressions. Laboratory Tests Test 11/03/17 15:41 11/03/17 19:59 11/03/17 20:20 Anion Gap 4 MEQ/L (5-15) Estimat Glomerular Filtration Rate 63 ML/MIN (>89) Total Creatine Kinase 338 U/L (26-192) Creatine Kinase MB 4.5 NG/ML (0.5-3.6) Troponin I LESS THAN 0.02 NG/ML Urine Specific [place] 1.036 (1.002-1.035) Urine Leukocyte Esterase TRACE (NEG) Urine Mucus FEW /lpf (OCC) Last 24 hours Impressions Abdomen/Pelvis CT 11/03/178 Signed Impressions: Service Date/Time: Friday, November 03, 2017 19:46 - CONCLUSION: 1. Small sigmoid diverticula without radiographic evidence of diverticulitis. 2. Otherwise negative CT abdomen/pelvis with contrast. Benjamin Paniagua MD Chest X-Ray 11/03/17 0000 Signed Impressions: Service Date/Time: Friday, November 03, 2017 15:52 - CONCLUSION: 1. There is mild cardiomegaly. The lungs are clear. Andi Penn MD Differential Diagnosis Radiculopathy versus musculoskeletal issues versus cholecystitis versus renal colic versus pneumonia Narrative Course Abdomen is fairly benign but she did have some mild tenderness to palpation of the right upper quadrant and also some just general tenderness in the right back area. CAT scan did not show any signs of acute intra-abdominal processes. Lab work was fairly unremarkable. LFTs were normal and UA did not show any signs of UTI. Chest x-ray did not show significant pneumonia. Cardiac enzymes are negative. At this point, my plan would be to release her with further symptomatic relief for pain and muscle relaxants. It appears that she has been lifting things more and I will have her follow-up with her primary care physician for ongoing pain. Return for any worsening in discomfort or new issues as needed. The plan has been discussed with her and she states understanding. Diagnosis Primary Impression: Right flank pain Med/Other Pt SpecificInfo: Prescription(s) given Scripts Cyclobenzaprine (Flexeril) 10 Mg Tab 10 MG PO TID for Muscle Spasm, #20 TAB 0 Refills Prov: Suad Obrien MD 11/03/17 Disposition: 01 DISCHARGE HOME Condition: Stable Suad Obrien MD Nov 03, 2017 19:51
[2017-11-03] MEDS ORDERED: IOHEXOL 350 MG/ML 10 ML VIAL (for RAD DIAG) IVCONTRAST ONE (19:53)
--- NOTE | 2017-11-03 20:11 | RADRPT ---
EXAM DATE/TIME: 11/03/2017 19:46 [facility] COMPARISON: No previous studies available for comparison. INDICATIONS : Right sided abdomen pain. IV CONTRAST: 100 cc Omnipaque 350 (iohexol) IV ORAL CONTRAST: No oral contrast ingested. RADIATION DOSE: 20.02 CTDIvol (mGy) MEDICAL HISTORY : Cardiovascular disease. Gastroesophageal reflux disease. Diabetes mellitus type 2. SURGICAL HISTORY : Appendectomy. ENCOUNTER: Initial ACUITY: 3 weeks PAIN SCALE: 8/10 LOCATION: Right abdomen TECHNIQUE: Volumetric scanning of the abdomen and pelvis was performed. Using automated exposure control and ad justment of the mA and/or kV according to patient size, radiation dose was kept as low as reasonably achievable to obtain optimal diagnostic quality images. DICOM format image data is available electro nically for review and comparison. FINDINGS: LOWER LUNGS: The visualized lower lungs are clear. LIVER: Homogeneous density without lesion. There is no dilation of the biliary tree. No calcified gallston es. SPLEEN: Normal size without lesion. PANCREAS: Within normal limits. KIDNEYS: Normal in size and shape. There is no mass, stone or hydronephrosis. ADRENAL GLANDS: Within normal limits. VASCULAR: There is no aortic aneurysm. BOWEL/MESENTERY: No dilated loops of small or large bowel. A few small diverticula in the sigmoid colon without radio graphic evidence of diverticulitis. No evidence of free fluid. No evidence of free air. ABDOMINAL WALL: Within normal limits. RETROPERITONEUM: There is no lymphadenopathy. BLADDER: No wall thickening or mass. REPRODUCTIVE: Within normal limits. INGUINAL: There is no lymphadenopathy or hernia. MUSCULOSKELETAL: Within normal limits for patient age. CONCLUSION: 1. Small sigmoid diverticula without radiographic evidence of diverticulitis. 2. Otherwise negative CT abdomen/pelvis with contrast. Benjamin Paniagua MD on November 03, 2017 at 20:07 Board Certified Radiologist. This report was verified electronically.
[2017-11-03 20:34] LABS: BILIRUBIN, URINE NEG (NEG); BLOOD, URINE NEG (NEG); GLUCOSE,URINE NEG (NEG); KETONE, URINE NEG (NEG); MUCUS URINE FEW /lpf (OCC); NITRITE,URINE NEG (NEG); PH, URINE 6.5 (5.0-8.5); SQUAMOUS EPITHELIAL CELL URINE 1 /hpf (0-5); URINE COLOR LIGHT-YELLOW (YELLW/STRAW); URINE LEUKOCYTE ESTERASE TRACE (NEG)
[2017-11-03 20:52] LABS: ALBUMIN 4.2 GM/DL (3.4-5.0); DIRECT BILIRUBIN ADULT 0.1 MG/DL (0.0-0.2)
[2017-11-03 20:54] LABS: INDIRECT BILIRUBIN 0.3 MG/DL (0.0-0.8); TOTAL BILIRUBIN ADULT 0.4 MG/DL (0.2-1.0); TOTAL PROTEIN 7.5 GM/DL (6.4-8.2)
[2017-11-03 20:59] LABS: AUTOMATED NEUTROPHIL # 6.7 TH/MM3 (1.8-7.7); BASOPHIL # 0.1 TH/MM3 (0-0.2); BASOPHIL % 1.3 % (0.0-2.0); EOSINOPHIL # 0.4 TH/MM3 (0-0.4); EOSINOPHIL % 3.8 % (0.0-4.0); HEMATOCRIT 39.4 % (35.0-46.0); HEMOGLOBIN 13.2 GM/DL (11.6-15.3); LYMPH % 22.7 % (9.0-44.0); LYMPHOCYTE # 2.3 TH/MM3 (1.0-4.8); MEAN CELL VOLUME 87.2 FL (80.0-100.0); MEAN CORPUSCULAR HEMOGLOBIN 29.2 PG (27.0-34.0); MEAN CORPUSCULAR HGB CONC 33.5 % (32.0-36.0); MEAN PLATELET VOLUME 9.7 FL (7.0-11.0); MONO % 7.5 % (0.0-8.0); MONOCYTE # 0.8 TH/MM3 (0-0.9); NEUT % 64.7 % (16.0-70.0); PLATELET COUNT 337 TH/MM3 (150-450); RED BLOOD COUNT 4.52 MIL/MM3 (4.00-5.30); RED CELL DISTRIBUTION WIDTH 14.2 % (11.6-17.2); WHITE BLOOD COUNT 10.3 TH/MM3 (4.0-11.0)
[2017-11-03] MEDS ORDERED: IBUPROFEN 600 MG TAB PO ONE (21:15)
[2017-11-03] MEDS ORDERED: CYCL10TA PO (21:52)
[2017-11-03 21:53] LABS: BANDS 3 % (0-6); BASOPHILS 1 % (0-2); LYMPHOCYTES 18 % (9-44); MONOCYTES 8 % (0-8); NEUTROPHIL # MANUAL DIFF 7.3 TH/MM3 (1.8-7.7); OVALOCYTES 1+ (NORMAL); POLYS (SEG NEUTROPHILS) 68 % (16-70)
--- NOTE | 2017-11-05 00:22 | EKG ---
Date Performed: 11/03/2017 Time Performed: 15:35:22 PTAGE: 72 years EKG: SINUS BRADYCARDIA WITH OCCASIONAL SUPRAVENTRICULAR PREMATURE COMPLEXES BORDERLINE ECG PREVIOUS TRACING : 09/06/2016 03.03 Compared to prior tracing, now in bradycardia DOCTOR: Tre Hernandez Interpretating Date/Time 11/05/2017 00:21:28
== END 2017-11-03 22:15 | disposition home or self-care (01) ==
LOC: NEPE 15:16
DX: R10.9 Unspecified abdominal pain (principal); E11.9 Type 2 diabetes mellitus without complications; E78.00 Pure hypercholesterolemia, unspecified; I10 Essential (primary) hypertension; Z79.84 Long term (current) use of oral hypoglycemic drugs
CPT/HCPCS: 71046; 74177; 80048; 80076; 81001; 82550; 82552; 84484; 85007; 85027; 93005; 99285; Q9967